=== PATIENT | female | born 1975 | race Caucasian/White ===

== ENCOUNTER 2022-02-19 14:14 | Outpatient (CLI) | payer OTHER, SELFPAY ==
[2022-02-19 10:51] LABS: Cholesterol* 226 mg/dL (90-199); Glucose* 96 mg/dL (60-115); HDL Cholesterol* 63 mg/dL (>=50); LDL Cholesterol Calculated 144 mg/dL (<100); Triglycerides* 93 mg/dL (40-149)
== END 2022-02-19 14:15 | disposition home or self-care (01) ==
PROVIDERS: Visit Provider Physician Assistant
DX: Z13.1 Encounter for screening for diabetes mellitus (principal); Z13.6 Encounter for screening for cardiovascular disorders
CPT/HCPCS: 80061; 82947

== ENCOUNTER 2022-03-08 14:42 | Outpatient (CLI) | payer OTHER, SELFPAY ==
--- NOTE | 2022-03-08 14:40 | CRLHL7_ITS ---
For Patients: As a result of the Century Cures Act, medical imaging exams and procedure reports are released immediately into your electronic medical record. You may view this report before your referring provider. If you have questions, please contact your health care provider. BILATERAL SCREENING MAMMOGRAM WITH COMPUTER-AIDED DETECTION AND TOMOSYNTHESIS TECHNIQUE: CC and MLO views were obtained. These mammographic images have been obtained using full-field digital technique. These mammographic images were interpreted with the benefit of computer-aided detection. Breast Tomosynthesis was used in this interpretation. COMPARISON FILM: 02/06/21, 04/10/19, 03/21/18. FINDINGS: The breasts are heterogeneously dense, which may obscure small masses IMPRESSION: There is no radiographic evidence for malignancy. ASSESSMENT: BI-RADS Category 1: Negative RECOMMENDATION: Routine screening mammogram in 1 year. A lay language report of this examination will be provided to the patient. Elliott Pryor M.D. Diagnostic Radiologist [email or web address] DAMIAN/Dictated by: Elliott Pryor MD @ 03/09/2022 12:18:00 PM (Electronically Signed)
== END 2022-03-08 14:43 | disposition home or self-care (01) ==
LOC: MAMMO 14:43
PROVIDERS: Visit Provider Physician Assistant
DX: Z12.31 Encounter for screening mammogram for malignant neoplasm of breast (principal); R92.2 Inconclusive mammogram
CPT/HCPCS: 77063; 77067

== ENCOUNTER 2023-05-30 14:33 | Outpatient (CLI) | payer OTHER, SELFPAY ==
--- NOTE | 2023-05-30 14:40 | MM_ITS ---
Patient: MAYRA RANKIN Facility:?[facility] Patient ID:?[id number] Site Patient ID:?[id number]. Site :?[id number] Study:?XRay-Breast Bilateral 3D W/CAD-05/30/2023 3:05:58 PM Ordering Physician:Addison May Final Report: BILATERAL SCREENING MAMMOGRAM WITH COMPUTER-AIDED DETECTION AND TOMOSYNTHESIS TECHNIQUE: CC and MLO views were obtained. These mammographic images have been obtained using full-field digital technique. These mammographic images were interpreted with the benefit of computer-aided detection. Breast Tomosynthesis was used in this interpretation. COMPARISON FILM: 03/08/22, 02/06/21, 04/10/19. FINDINGS: The breasts are heterogeneously dense, which may obscure small masses IMPRESSION: There is no radiographic evidence for malignancy. ASSESSMENT: BI-RADS Category 1: Negative RECOMMENDATION: Routine screening mammogram in 1 year. A lay language report of this examination will be provided to the patient. Elliott Pryor M.D. Diagnostic Radiologist [email or web address] Transcribed: 11:15 [email or web address]/Dictated by: Elliott Pryor MD @ 05/31/2023 8:54:00 AM Signed by:Jovana Pryor MD @05/31/2023 12:07:25 PM (Electronic Signature)
== END 2023-05-30 14:34 | disposition home or self-care (01) ==
LOC: MAMMO 14:34
PROVIDERS: Visit Provider Physician Assistant
DX: Z12.31 Encounter for screening mammogram for malignant neoplasm of breast (principal); R92.2 Inconclusive mammogram
CPT/HCPCS: 77063; 77067

== ENCOUNTER 2023-06-01 07:37 | Outpatient (CLI) | payer OTHER, SELFPAY | END 2023-06-01 07:38 | disposition home or self-care (01) | LOC: NFLDREF 12:06 | PROVIDERS: Visit Provider Physician Assistant | DX: E78.5 Hyperlipidemia, unspecified (principal); Z83.3 Family history of diabetes mellitus; Z13.1 Encounter for screening for diabetes mellitus | CPT/HCPCS: 80061; 82947 ==

== ENCOUNTER 2023-08-15 07:14 | Outpatient (CLI) | payer OTHER, SELFPAY ==
--- NOTE | 2023-08-15 08:46 | W.ANESCHARGE ---
Anesthesia Charges Start Date/Time Anesthesia Start Date: 08/15/23 Anesthesia Start Time: 08:20 Stop Date/Time Anesthesia Stop Date: 08/15/23 Anesthesia Stop Time: 08:45
--- NOTE | 2023-08-15 09:19 | W.ANESCHARGE ---
Anesthesia Charges Start Date/Time Anesthesia Start Date: 08/15/23 Anesthesia Start Time: 08:20 Stop Date/Time Anesthesia Stop Date: 08/15/23 Anesthesia Stop Time: 08:45
== END 2023-08-15 07:15 | disposition home or self-care (01) ==
LOC: OP CLINIC 07:15
PROVIDERS: PCP Physician Assistant; Visit Provider Surgery
DX: Z12.11 Encounter for screening for malignant neoplasm of colon (principal)
CPT/HCPCS: 00811; 00812; 45378; J2704

== ENCOUNTER 2024-04-13 08:53 | Outpatient (CLI) | payer BC, SELFPAY | END 2024-04-13 08:54 | disposition home or self-care (01) | LOC: NFLDREF 08:54 | PROVIDERS: PCP Physician Assistant; Visit Provider Physician Assistant | DX: Z13.6 Encounter for screening for cardiovascular disorders (principal); Z13.1 Encounter for screening for diabetes mellitus; Z13.29 Encounter for screening for other suspected endocrine disorder | CPT/HCPCS: 80061; 82947; 84443 ==

== ENCOUNTER 2024-05-30 08:09 | Outpatient (CLI) | payer BC, SELFPAY ==
--- NOTE | 2024-05-30 08:15 | CRLHL7_ITS ---
For Patients: As a result of the Century Cures Act, medical imaging exams and procedure reports are released immediately into your electronic medical record. You may view this report before your referring provider. If you have questions, please contact your health care provider. BILATERAL SCREENING MAMMOGRAM WITH COMPUTER-AIDED DETECTION AND TOMOSYNTHESIS TECHNIQUE: CC and MLO views were obtained. These mammographic images have been obtained using full-field digital technique. These mammographic images were interpreted with the benefit of computer-aided detection. Breast Tomosynthesis was used in this interpretation. COMPARISON FILM: 05/30/23, 03/08/22, 02/06/21. FINDINGS: The breasts are heterogeneously dense, which may obscure small masses. IMPRESSION: There is no radiographic evidence for malignancy. ASSESSMENT: BI-RADS Category 1: Negative RECOMMENDATION: Routine screening mammogram in 1 year. A lay language report of this examination will be provided to the patient. Elliott Pryor M.D. Diagnostic Radiologist [email or web address] SP/Dictated by: Elliott Pryor MD @ 05/30/2024 12:39:00 PM (Electronically Signed)
== END 2024-05-30 08:10 | disposition home or self-care (01) ==
LOC: MAMMO 08:09
PROVIDERS: PCP Physician Assistant; Visit Provider Physician Assistant
DX: Z12.31 Encounter for screening mammogram for malignant neoplasm of breast (principal); R92.333 Mammographic heterogeneous density, bilateral breasts
CPT/HCPCS: 77063; 77067